=== PATIENT | male | born 1950 | race Two or more races ===

== ENCOUNTER 2020-12-06 12:21 | Inpatient (IN) | payer MEDICARE, MEDICAID ==
[~2020-12-06] VITALS: Ht 167.6 cm; Wt 118.8 kg
[2020-12-06] MEDS ORDERED: SODIUM CHLORIDE 0.9% 1000ML BAG (SEPSIS BOLUS) IV ONE (12:45)
[2020-12-06] MEDS ORDERED: ACETAMINOPHEN 325MG TABLET PO ONE (12:45)
[2020-12-06] MEDS ORDERED: VANCOMYCIN 1 G PREMIX 200 ML IV ONE (13:00)
[2020-12-06] MEDS ORDERED: PIPERACILLIN/TAZ 3.375G PREMIX 50 ML IV ONE (13:00)
[2020-12-06 13:19] LABS: BASOPHILS % 0.8 % (0.0-2.0); EOSINOPHILS % 1.8 % (0.0-5.0); HEMATOCRIT. 30.7 % (42.0-52.0); HEMOGLOBIN. 10.5 g/dL (14.0-18.0); LYMPHOCYTES % 16.1 % (20.0-50.0); MEAN CORPUSCULAR HEMOGLOBIN 30.9 pg (28.0-32.0); MEAN CORPUSCULAR VOLUME 90.7 fL (80.0-94.0); MONOCYTES % 7.3 % (2.0-8.0); RED BLOOD CELL COUNT 3.39 mill/uL (4.7-6.1); RED CELL DISTRIBUTION WIDTH 19.8 % (11.6-14.6)
[2020-12-06 13:25] LABS: CHLORIDE 96 mEq/L (98-107)
[2020-12-06 13:41] LABS: INR 1.5; PARTIAL THROMBOPLASTIN TIME 32.7 sec (23.4-31.0); PROTHROMBIN TIME 15.3 sec (9.6-11.0)
[2020-12-06 14:02] LABS: PLATELET 49 x1000/uL (130-400); PLATELET ESTIMATE MARKEDLY DECREASED
[2020-12-06 14:18] LABS: CLARITY URINE CLEAR (CLEAR); COLOR URINE ORANGE (YELLOW); KETONES URINE TRACE (NEGATIVE); LEUKOCYTE ESTERASE URINE 1+ (NEGATIVE); NITRITE URINE NEGATIVE (NEGATIVE); OCCULT BLOOD URINE NEGATIVE (NEGATIVE); PH URINE 5.5 (4.5-8.0); PROTEIN URINE TRACE (NEGATIVE); SPECIFIC GRAVITY URINE 1.017 (1.005-1.030)
[2020-12-06] MEDS ORDERED: KCL 20MEQ/100ML PREMIX 100 ML IV ONE (14:30)
[2020-12-06] MEDS ORDERED: LACTULOSE 20G/30ML UDC PO ONE (14:30)
[2020-12-06] MEDS ORDERED: POTASSIUM CHLORIDE 20MEQ TABLET SR PO ONE (14:30)
[2020-12-07] MEDS ORDERED: NALOXONE HCL 0.4MG/ML VIAL IV PRN (09:00)
[2020-12-07] MEDS ORDERED: MORPHINE SULFATE 2 MG/ML CPJ (NOT FOR IM USE) IV PRN (09:00)
[2020-12-07] MEDS ORDERED: IPRATROPIUM/ALBUTEROL 0.5-3(2.5)MG/3ML NEB HHN PRN (09:00)
[2020-12-07 09:56] VITALS: BP 140/83
[2020-12-07] MEDS: VANCOMYCIN 1500MG in DEXTROSE 5% WATER 250ML IV SCH (11:28)
[2020-12-07] MEDS: SODIUM CHLORIDE 0.9% 1,000 ML IV SCH (11:28)
[2020-12-07] MEDS ORDERED: FURO-151 PO (12:13)
[2020-12-07 12:27] VITALS: BP 130/49
[2020-12-07 13:13] LABS: BASOPHILS % 0.6 % (0.0-2.0); EOSINOPHILS % 7.5 % (0.0-5.0); HEMATOCRIT. 30.6 % (42.0-52.0); HEMOGLOBIN. 10.5 g/dL (14.0-18.0); LYMPHOCYTES % 15.5 % (20.0-50.0); MEAN CORPUSCULAR HEMOGLOBIN 31.1 pg (28.0-32.0); MEAN CORPUSCULAR VOLUME 90.9 fL (80.0-94.0); MEAN PLATELET VOLUME 9.9 fl (7.4-10.4); MONOCYTES % 7.8 % (2.0-8.0); NEUTROPHILS % 68.6 % (40.0-76.0); RED BLOOD CELL COUNT 3.37 mill/uL (4.7-6.1); RED CELL DISTRIBUTION WIDTH 20.6 % (11.6-14.6)
[2020-12-07] MEDS ORDERED: PIPERACILLIN/TAZOBACTAM 3.375 G in DEXTROSE 5% WATER 50 ML IV SCH (14:00)
[2020-12-07 15:54] VITALS: BP 153/80
[2020-12-07] MEDS ORDERED: ATOR20TA65 PO (16:04)
[2020-12-07] MEDS ORDERED: AMLO-337 MT (16:04)
[2020-12-07] MEDS ORDERED: SENN-178 PO (16:04)
[2020-12-07] MEDS ORDERED: POTASSIUM CHLORIDE INJ 40 MEQ in DEXT 5% WATER 250 ML IV NR ×2 (16:30→20:00)
[2020-12-07 20:00] VITALS: BP 125/54
[2020-12-07] MEDS: LACTULOSE 20G/30ML UDC PO SCH (20:32)
[2020-12-08] VITALS: BP 126/56
[2020-12-08] MEDS: SODIUM CHLORIDE 0.9% 1,000 ML IV SCH ×3 (00:57→15:00)
[2020-12-08] MEDS: PIPERACILLIN/TAZOBACTAM 3.375G in DEXT 5% WATER 50ML IV SCH ×2 (00:57→05:40)
[2020-12-08 04:00] VITALS: BP 140/76
[2020-12-08] MEDS: LACTULOSE 20G/30ML UDC PO SCH ×3 (05:39→22:13)
[2020-12-08 07:15] LABS: CHLORIDE 103 mEq/L (98-107)
[2020-12-08 07:22] LABS: LDL CHOLESTEROL 48 mg/dL (5-100)
[2020-12-08 07:23] LABS: HDL CHOLESTEROL 12 mg/dL (40-59)
[2020-12-08 07:24] LABS: INR 1.6; PARTIAL THROMBOPLASTIN TIME 36.4 sec (23.4-31.0); PROTHROMBIN TIME 16.2 sec (9.6-11.0)
[2020-12-08 07:28] LABS: HEMATOCRIT. 29.9 % (42.0-52.0); HEMOGLOBIN. 10.1 g/dL (14.0-18.0); MEAN CORPUSCULAR HEMOGLOBIN 31.1 pg (28.0-32.0); MEAN CORPUSCULAR VOLUME 92.1 fL (80.0-94.0); MEAN PLATELET VOLUME 9.9 fl (7.4-10.4); RED BLOOD CELL COUNT 3.25 mill/uL (4.7-6.1); RED CELL DISTRIBUTION WIDTH 20.6 % (11.6-14.6)
[2020-12-08 07:43] LABS: HEPATITIS B SURFACE ANTIGEN NEGATIVE
[2020-12-08 08:00] VITALS: BP 145/63
[2020-12-08 08:05] LABS: PLATELET 38 x1000/uL (130-400)
[2020-12-08] MEDS ORDERED: POTASSIUM CHLORIDE INJ 40 MEQ in DEXT 5% WATER 250 ML IV NR (10:00)
[2020-12-08] MEDS ORDERED: SIMETHICONE/SOD BICARB/CIT AC 1 EACH GRAN.EF.PK ONE (11:10)
[2020-12-08] MEDS ORDERED: LIDOCAINE HCL 1% 20ML VIAL (Pyxis) INJ ONE (11:10)
[2020-12-08] MEDS ORDERED: SODIUM BICARBONATE 4% (2.4MEQ) 5ML VIAL IV ONE (11:11)
[2020-12-08 11:43] LABS: PLATELET ESTIMATE MARKEDLY DECREASED
[2020-12-08 12:00] VITALS: BP 137/67
[2020-12-08 16:00] VITALS: BP 128/42
[2020-12-08] MEDS: VANCOMYCIN 1500MG in DEXTROSE 5% WATER 250ML IV SCH (18:10)
[2020-12-08] MEDS: ACETAMINOPHEN 325MG TABLET PO PRN (20:21)
[2020-12-08 20:38] VITALS: BP 130/57
[2020-12-08] MEDS: CEFEPIME 1,000 MG in DEXTROSE 5% WATER 50 ML IV SCH (22:12)
[2020-12-08] MEDS: METRONIDAZOLE 500 MG PREMIX 100 ML IV SCH (22:14)
[2020-12-09] VITALS: BP 127/57
[2020-12-09] MEDS: SODIUM CHLORIDE 0.9% 1,000 ML IV SCH ×3 (01:29→21:09)
[2020-12-09 04:00] VITALS: BP 123/47
[2020-12-09] MEDS: LACTULOSE 20G/30ML UDC PO SCH ×3 (06:06→21:10)
[2020-12-09] MEDS: CEFEPIME 1,000 MG in DEXTROSE 5% WATER 50 ML IV SCH ×3 (06:06→21:09)
[2020-12-09] MEDS: METRONIDAZOLE 500 MG PREMIX 100 ML IV SCH (06:07)
[2020-12-09 07:46] LABS: HEMATOCRIT. 28.8 % (42.0-52.0); HEMOGLOBIN. 9.9 g/dL (14.0-18.0); MEAN CORPUSCULAR HEMOGLOBIN 31.3 pg (28.0-32.0); MEAN CORPUSCULAR VOLUME 91.5 fL (80.0-94.0); RED BLOOD CELL COUNT 3.15 mill/uL (4.7-6.1); RED CELL DISTRIBUTION WIDTH 21.2 % (11.6-14.6)
[2020-12-09 08:00] VITALS: BP 130/52
[2020-12-09] MEDS ORDERED: POTASSIUM CHLORIDE 20MEQ TABLET SR PO NR (09:00)
[2020-12-09] MEDS: VANCOMYCIN 1 G PREMIX 200 ML IV SCH (10:58)
[2020-12-09] MEDS ORDERED: KCL 20MEQ/100ML PREMIX 100 ML IV NR (11:00)
[2020-12-09] MEDS ORDERED: POTASSIUM CHLORIDE INJ 20 MEQ in DEXT 5% WATER 250 ML IV NR (11:00)
[2020-12-09 11:40] LABS: PLATELET ESTIMATE MARKEDLY DECREASED
[2020-12-09 11:41] LABS: PLATELET 36 x1000/uL (130-400)
[2020-12-09 12:00] VITALS: BP 128/50
[2020-12-09] MEDS ORDERED: MAGN200T5 MT (13:56)
[2020-12-09] MEDS ORDERED: CHLO25TA2 MT (13:56)
[2020-12-09] MEDS ORDERED: SIMV-43 MT (13:58)
[2020-12-09 14:46] LABS: PLATELET 43 x1000/uL (130-400)
[2020-12-09 16:00] VITALS: BP 152/78
[2020-12-09] MEDS: METRONIDAZOLE 500MG TABLET PO SCH ×2 (16:10→21:09)
[2020-12-09] MEDS: ACETAMINOPHEN 325MG TABLET PO PRN (17:07)
[2020-12-09 18:23] LABS: PHOSPHORUS 1.3 mg/dL (2.5-4.9)
[2020-12-09 20:00] VITALS: BP 93/48
[2020-12-10] VITALS: BP 113/54
[2020-12-10] MEDS ORDERED: MAGNESIUM 2 G PREMIX 50 ML IV SCH (00:15)
[2020-12-10 04:00] VITALS: BP 135/54
[2020-12-10] MEDS: LACTULOSE 20G/30ML UDC PO SCH ×3 (06:00→20:47)
[2020-12-10 06:32] LABS: BASOPHILS % 0.3 % (0.0-2.0); CHLORIDE 98 mEq/L (98-107); EOSINOPHILS % 12.1 % (0.0-5.0); HEMATOCRIT. 37.9 % (42.0-52.0); HEMOGLOBIN. 12.6 g/dL (14.0-18.0); LYMPHOCYTES % 10.8 % (20.0-50.0); MEAN CORPUSCULAR HEMOGLOBIN 30.8 pg (28.0-32.0); MEAN CORPUSCULAR VOLUME 92.6 fL (80.0-94.0); MONOCYTES % 6.8 % (2.0-8.0); RED CELL DISTRIBUTION WIDTH 21.6 % (11.6-14.6)
[2020-12-10] MEDS: CEFEPIME 1,000 MG in DEXTROSE 5% WATER 50 ML IV SCH ×2 (06:41→14:07)
[2020-12-10] MEDS: METRONIDAZOLE 500MG TABLET PO SCH ×2 (06:41→14:15)
[2020-12-10] MEDS: SODIUM CHLORIDE 0.9% 1,000 ML IV SCH ×2 (06:42→17:47)
[2020-12-10 08:00] VITALS: BP 109/40
[2020-12-10 08:32] LABS: PLATELET 59 x1000/uL (130-400)
[2020-12-10] MEDS ORDERED: PREDNISONE 20MG TABLET PO SCH (10:00)
[2020-12-10] MEDS ORDERED: ALBUMIN HUMAN 25GM/100ML (25%) IV NR (10:00)
[2020-12-10 12:00] VITALS: BP 107/43
[2020-12-10] MEDS: VANCOMYCIN 1 G PREMIX 200 ML IV SCH (12:04)
[2020-12-10] MEDS: METHYLPREDNISOLONE SOD SUCC 40 MG/ML VIAL IV SCH ×2 (12:46→17:47)
[2020-12-10] MEDS ORDERED: SODIUM PHOS,M-BASIC-D-BASIC 30 MM in DEXT 5% WATER 500 ML IV NR (13:00)
[2020-12-10 16:00] VITALS: BP 125/42
[2020-12-10 16:50] LABS: T4 FREE 0.99 ng/dL (0.76-1.46)
[2020-12-10 20:00] VITALS: BP 114/54
[2020-12-10] MEDS: FAMOTIDINE 20MG TABLET PO SCH (20:47)
[2020-12-10] MEDS: MEROPENEM 1,000 MG in SODIUM CHLORIDE 0.9% 100 ML IV SCH (20:47)
[2020-12-11] VITALS (7 sets, daily range): BP systolic 107–135; BP diastolic 43–59
[2020-12-11] MEDS: METHYLPREDNISOLONE SOD SUCC 40 MG/ML VIAL IV SCH ×4 (00:19→17:42)
[2020-12-11] MEDS: MEROPENEM 1,000 MG in SODIUM CHLORIDE 0.9% 100 ML IV SCH ×3 (02:13→17:44)
[2020-12-11] MEDS: SODIUM CHLORIDE 0.9% 1,000 ML IV SCH ×2 (03:15→11:19)
[2020-12-11 06:03] LABS: BASOPHILS % 0.1 % (0.0-2.0); EOSINOPHILS % 1.7 % (0.0-5.0); HEMATOCRIT. 30.6 % (42.0-52.0); HEMOGLOBIN. 10.2 g/dL (14.0-18.0); LYMPHOCYTES % 10.7 % (20.0-50.0); MEAN CORPUSCULAR HEMOGLOBIN 30.5 pg (28.0-32.0); MEAN CORPUSCULAR VOLUME 91.6 fL (80.0-94.0); MEAN PLATELET VOLUME 9.9 fl (7.4-10.4); MONOCYTES % 2.2 % (2.0-8.0); NEUTROPHILS % 85.3 % (40.0-76.0); PLATELET 56 x1000/uL (130-400); RED BLOOD CELL COUNT 3.34 mill/uL (4.7-6.1); RED CELL DISTRIBUTION WIDTH 21.1 % (11.6-14.6)
[2020-12-11 06:14] LABS: CHLORIDE 94 mEq/L (98-107)
[2020-12-11] MEDS: LACTULOSE 20G/30ML UDC PO SCH ×3 (06:16→21:14)
[2020-12-11 06:27] LABS: PHOSPHORUS 2.5 mg/dL (2.5-4.9)
[2020-12-11] MEDS: FAMOTIDINE 20MG TABLET PO SCH ×2 (09:00→21:14)
[2020-12-11] MEDS: VANCOMYCIN 1 G PREMIX 200 ML IV SCH (11:19)
[2020-12-11] MEDS ORDERED: POTASSIUM CHLORIDE 20MEQ/PACKET PO NR (13:45)
[2020-12-11] MEDS: SODIUM BICARBONATE 650 MG TABLET PO SCH ×2 (15:40→17:42)
[2020-12-12] MEDS: METHYLPREDNISOLONE SOD SUCC 40 MG/ML VIAL IV SCH ×4 (00:01→17:45)
[2020-12-12 00:26] VITALS: BP 130/64
[2020-12-12] MEDS: MEROPENEM 1,000 MG in SODIUM CHLORIDE 0.9% 100 ML IV SCH ×3 (02:15→17:45)
[2020-12-12 04:00] VITALS: BP 106/61
[2020-12-12 05:38] LABS: BASOPHILS % 0.2 % (0.0-2.0); EOSINOPHILS % 1.4 % (0.0-5.0); HEMATOCRIT. 31.8 % (42.0-52.0); HEMOGLOBIN. 10.7 g/dL (14.0-18.0); LYMPHOCYTES % 7.7 % (20.0-50.0); MEAN CORPUSCULAR VOLUME 92.4 fL (80.0-94.0); MONOCYTES % 4.5 % (2.0-8.0); NEUTROPHILS % 86.2 % (40.0-76.0); RED BLOOD CELL COUNT 3.44 mill/uL (4.7-6.1); RED CELL DISTRIBUTION WIDTH 21.8 % (11.6-14.6)
[2020-12-12] MEDS: LACTULOSE 20G/30ML UDC PO SCH ×3 (06:00→22:31)
[2020-12-12 06:21] LABS: PHOSPHORUS 2.1 mg/dL (2.5-4.9)
[2020-12-12 07:59] VITALS: BP 154/67
[2020-12-12] MEDS: FAMOTIDINE 20MG TABLET PO SCH ×2 (08:54→22:31)
[2020-12-12] MEDS: SODIUM BICARBONATE 650 MG TABLET PO SCH (08:54)
[2020-12-12 09:06] LABS: IMMUNOGLOBULIN A 775 mg/dL (61-437); IMMUNOGLOBULIN G 2152 mg/dL (603-1613); IMMUNOGLOBULIN M 60 mg/dL (20-172)
[2020-12-12 10:05] LABS: PLATELET 63 x1000/uL (130-400)
[2020-12-12 10:06] LABS: MEAN PLATELET VOLUME 9.4 fl (7.4-10.4)
[2020-12-12] MEDS: VANCOMYCIN 1 G PREMIX 200 ML IV SCH (11:24)
[2020-12-12 11:44] VITALS: BP 131/51
[2020-12-12 15:53] VITALS: BP 160/74
[2020-12-12] MEDS: POTASSIUM-SODIUM PHOSPHATE POWDER PACKET PO SCH (16:10)
[2020-12-12 20:00] VITALS: BP 122/48
[2020-12-13] VITALS: BP 156/63
[2020-12-13] MEDS: METHYLPREDNISOLONE SOD SUCC 40 MG/ML VIAL IV SCH ×4 (01:34→17:26)
[2020-12-13] MEDS: MEROPENEM 1,000 MG in SODIUM CHLORIDE 0.9% 100 ML IV SCH ×3 (01:35→17:26)
[2020-12-13 04:00] VITALS: BP 101/89
[2020-12-13] MEDS: LACTULOSE 20G/30ML UDC PO SCH ×3 (05:39→21:37)
[2020-12-13 06:49] LABS: BASOPHILS % 0.1 % (0.0-2.0); EOSINOPHILS % 0.5 % (0.0-5.0); HEMATOCRIT. 33.2 % (42.0-52.0); HEMOGLOBIN. 11.2 g/dL (14.0-18.0); LYMPHOCYTES % 10.6 % (20.0-50.0); MEAN CORPUSCULAR VOLUME 92.2 fL (80.0-94.0); MEAN PLATELET VOLUME 9.3 fl (7.4-10.4); MONOCYTES % 7.7 % (2.0-8.0); NEUTROPHILS % 81.1 % (40.0-76.0); PLATELET 76 x1000/uL (130-400); RED CELL DISTRIBUTION WIDTH 21.8 % (11.6-14.6)
[2020-12-13 07:23] LABS: CHLORIDE 101 mEq/L (98-107)
[2020-12-13 08:00] VITALS: BP 138/55
[2020-12-13] MEDS: POTASSIUM-SODIUM PHOSPHATE POWDER PACKET PO SCH ×2 (09:42→17:26)
[2020-12-13] MEDS: FAMOTIDINE 20MG TABLET PO SCH ×2 (09:42→21:00)
[2020-12-13 12:00] VITALS: BP 135/55
[2020-12-13 16:00] VITALS: BP 115/76
[2020-12-13 20:00] VITALS: BP 152/66
[2020-12-14] VITALS: BP 157/76
[2020-12-14] MEDS: METHYLPREDNISOLONE SOD SUCC 40 MG/ML VIAL IV SCH ×4 (00:49→18:52)
[2020-12-14] MEDS: MEROPENEM 1,000 MG in SODIUM CHLORIDE 0.9% 100 ML IV SCH ×3 (02:58→18:52)
[2020-12-14 04:00] VITALS: BP 104/53
[2020-12-14] MEDS: LACTULOSE 20G/30ML UDC PO SCH ×3 (05:52→22:58)
[2020-12-14 06:43] LABS: HEMATOCRIT. 29.9 % (42.0-52.0); HEMOGLOBIN. 10.1 g/dL (14.0-18.0); MEAN CORPUSCULAR HEMOGLOBIN 31.4 pg (28.0-32.0); MEAN CORPUSCULAR VOLUME 93.3 fL (80.0-94.0); RED CELL DISTRIBUTION WIDTH 22.4 % (11.6-14.6)
[2020-12-14 06:54] LABS: CHLORIDE 107 mEq/L (98-107)
[2020-12-14 07:03] LABS: PHOSPHORUS 3.5 mg/dL (2.5-4.9)
[2020-12-14 08:00] VITALS: BP 142/65
[2020-12-14 09:06] LABS: ACTIN (SMOOTH MUSCLE) ANTIBODY 11 Units (0-19); ANGIOTENSION CONVERTING ENZYME 75 U/L (14-82); HLA CLASS 1 ANTIBODY Positive (Negative); IIb/IIIa ANTIBODY Positive (Negative); Ib/IX ANTIBODY Positive (Negative)
[2020-12-14] MEDS: FAMOTIDINE 20MG TABLET PO SCH ×2 (09:25→22:58)
[2020-12-14] MEDS: POTASSIUM-SODIUM PHOSPHATE POWDER PACKET PO SCH ×2 (09:25→18:49)
[2020-12-14 10:09] LABS: ANTI-DNA DOUBLE STRANDED QUANT < 1 IU/mL (0-9)
[2020-12-14 10:59] LABS: BG BASE EXCESS -0.8 mmol/L (-2.0-2.0); BG CARBOXYHEMOGLOBIN 1.5 % (0.5-1.5); BG DEOXYHEMOGLOBIN 22.8 % (0.0-5.0); BG HCO3 ACT 21.9 mmol/L (22.0-26.0); BG METHEMOGLOBIN 0.2 % (0.0-1.5); BG OXYGEN SATURATION 76.8 % (92.0-98.5); BG OXYHEMOGLOBIN 75.5 % (94.0-97.0); BG PCO2 30.3 mmHg (35.0-45.0); BG PH 7.476 (7.350-7.450); BG SAMPLE SITE RIGHT RADIAL; BG TOTAL HEMOGLOBIN 13.1 g/dL (12.0-18.0); BG VENT MODE NASAL CANNULA
[2020-12-14 12:00] VITALS: BP 139/64
[2020-12-14 13:06] LABS: ALDOLASE 18.1 U/L (3.3-10.3); ATYPICAL P-ANCA <1:20 titer (Neg:<1:20); CYTOPLASMIC C-ANCA <1:20 titer (Neg:<1:20); PERINUCLEAR P-ANCA <1:20 titer (Neg:<1:20)
[2020-12-14 14:22] LABS: PLATELET 50 x1000/uL (130-400); PLATELET ESTIMATE MARKEDLY DECREASED
[2020-12-14 16:00] VITALS: BP 120/42
[2020-12-14 20:00] VITALS: BP 140/77
[2020-12-15] VITALS: BP 156/69
[2020-12-15] MEDS: METHYLPREDNISOLONE SOD SUCC 40 MG/ML VIAL IV SCH ×4 (02:50→18:51)
[2020-12-15] MEDS: MEROPENEM 1,000 MG in SODIUM CHLORIDE 0.9% 100 ML IV SCH ×3 (02:50→18:50)
[2020-12-15 04:00] VITALS: BP 126/73
[2020-12-15] MEDS: LACTULOSE 20G/30ML UDC PO SCH ×3 (06:00→22:00)
[2020-12-15 08:30] VITALS: BP 154/74
[2020-12-15] MEDS: POTASSIUM-SODIUM PHOSPHATE POWDER PACKET PO SCH ×2 (08:52→17:41)
[2020-12-15] MEDS: FAMOTIDINE 20MG TABLET PO SCH ×2 (08:52→20:59)
[2020-12-15 09:07] LABS: ANA IFA Positive (.)
[2020-12-15] MEDS: SPIRONOLACTONE 25MG TABLET PO SCH (09:56)
[2020-12-15 12:15] VITALS: BP 154/64
[2020-12-15 12:29] LABS: INR 1.8; PROTHROMBIN TIME 18.7 sec (9.6-11.0)
[2020-12-15 13:11] LABS: ANTI-MYELOPEROXIDASE AB < 9.0 U/mL (0.0-9.0); ANTI-PROTEINASE 3 ABS < 3.5 U/mL (0.0-3.5)
[2020-12-15 14:10] LABS: BG BASE EXCESS 1.9 mmol/L (-2.0-2.0); BG CARBOXYHEMOGLOBIN 0.5 % (0.5-1.5); BG DEOXYHEMOGLOBIN 3.7 % (0.0-5.0); BG FRACTION INSPIRED OXYGEN 100; BG METHEMOGLOBIN 0.4 % (0.0-1.5); BG OXYGEN SATURATION 96.3 % (92.0-98.5); BG OXYHEMOGLOBIN 95.4 % (94.0-97.0); BG PCO2 33.7 mmHg (35.0-45.0); BG PH 7.488 (7.350-7.450); BG PO2 90.5 mmHg (75.0-100.0); BG SAMPLE SITE RIGHT RADIAL; BG TOTAL HEMOGLOBIN 10.8 g/dL (12.0-18.0); BG VENT MODE MASK - NRB
[2020-12-15 16:45] LABS: PHOSPHORUS 4.9 mg/dL (2.5-4.9)
[2020-12-15 20:34] VITALS: BP 144/70
[2020-12-15] MEDS: IPRATROPIUM/ALBUTEROL 0.5-3(2.5)MG/3ML NEB HHN SCH (20:40)
[2020-12-16] VITALS (7 sets, daily range): BP systolic 123–169; BP diastolic 52–95
[2020-12-16] MEDS: METHYLPREDNISOLONE SOD SUCC 40 MG/ML VIAL IV SCH ×4 (01:51→17:32)
[2020-12-16] MEDS: MEROPENEM 1,000 MG in SODIUM CHLORIDE 0.9% 100 ML IV SCH ×3 (01:57→17:33)
[2020-12-16] MEDS: LACTULOSE 20G/30ML UDC PO SCH ×2 (06:00→14:00)
[2020-12-16 07:59] LABS: BASOPHILS % 0.3 % (0.0-2.0); EOSINOPHILS % 0.1 % (0.0-5.0); HEMATOCRIT. 30.7 % (42.0-52.0); HEMOGLOBIN. 10.4 g/dL (14.0-18.0); LYMPHOCYTES % 12.5 % (20.0-50.0); MEAN CORPUSCULAR HEMOGLOBIN 31.7 pg (28.0-32.0); MEAN CORPUSCULAR VOLUME 93.9 fL (80.0-94.0); MONOCYTES % 4.4 % (2.0-8.0); NEUTROPHILS % 82.7 % (40.0-76.0); RED BLOOD CELL COUNT 3.27 mill/uL (4.7-6.1); RED CELL DISTRIBUTION WIDTH 22.9 % (11.6-14.6)
[2020-12-16 08:08] LABS: INR 1.7; PARTIAL THROMBOPLASTIN TIME 29.1 sec (23.4-31.0); PROTHROMBIN TIME 17.7 sec (9.6-11.0)
[2020-12-16 08:30] LABS: PHOSPHORUS 5.2 mg/dL (2.5-4.9)
[2020-12-16 09:11] LABS: G6PD RBC 3.67 x10E6/uL (4.14-5.80)
[2020-12-16] MEDS: POTASSIUM-SODIUM PHOSPHATE POWDER PACKET PO SCH (09:53)
[2020-12-16] MEDS: FAMOTIDINE 20MG TABLET PO SCH ×2 (09:53→21:04)
[2020-12-16] MEDS: SPIRONOLACTONE 25MG TABLET PO SCH (09:54)
[2020-12-16 10:26] LABS: PLATELET ESTIMATE DECREASED
[2020-12-16 10:28] LABS: PLATELET 60 x1000/uL (130-400)
[2020-12-16] MEDS: FUROSEMIDE 40MG TABLET PO SCH (18:32)
[2020-12-16] MEDS ORDERED: LORAZEPAM 0.5MG TABLET PO PRN (19:30)
[2020-12-16] MEDS: BENZONATATE 100MG CAPSULE PO PRN ×2 (20:58→21:03)
[2020-12-17] VITALS (12 sets, daily range): BP systolic 96–160; BP diastolic 17–96
[2020-12-17] MEDS: LACTULOSE 20G/30ML UDC PO SCH ×4 (00:26→22:45)
[2020-12-17] MEDS: METHYLPREDNISOLONE SOD SUCC 40 MG/ML VIAL IV SCH ×4 (00:26→17:09)
[2020-12-17] MEDS: IPRATROPIUM/ALBUTEROL 0.5-3(2.5)MG/3ML NEB HHN SCH ×4 (02:46→20:33)
[2020-12-17] MEDS: MEROPENEM 1,000 MG in SODIUM CHLORIDE 0.9% 100 ML IV SCH ×3 (04:35→17:08)
[2020-12-17] MEDS ORDERED: PHYTONADIONE 10MG/ML AMP SUBCUT NR ×2 (05:00→15:45)
[2020-12-17] MEDS: FUROSEMIDE 40MG TABLET PO SCH ×2 (06:13→17:09)
[2020-12-17 06:20] LABS: CHLORIDE 110 mEq/L (98-107)
[2020-12-17 06:26] LABS: PHOSPHORUS 4.2 mg/dL (2.5-4.9)
[2020-12-17] MEDS: FAMOTIDINE 20MG TABLET PO SCH ×2 (09:06→22:45)
[2020-12-17] MEDS: SPIRONOLACTONE 25MG TABLET PO SCH (09:06)
[2020-12-17 09:07] LABS: ANTI-CENTROMERE B ANTIBODIES < 0.2 AI (0.0-0.9); ANTI-JO 1 ABS <0.2 AI (0.0-0.9)
[2020-12-18] VITALS (15 sets, daily range): BP systolic 109–158; BP diastolic 20–98
[2020-12-18] MEDS ORDERED: ALBUMIN HUMAN 25GM/100ML (25%) IV NR ×2 (02:00→08:00)
[2020-12-18] MEDS ORDERED: SODIUM BICARBONATE 100 MEQ in SODIUM CHLORIDE 0.45% 1,000 ML IV SCH (02:00)
[2020-12-18] MEDS: METHYLPREDNISOLONE SOD SUCC 40 MG/ML VIAL IV SCH ×4 (02:15→21:16)
[2020-12-18] MEDS: FUROSEMIDE 40MG TABLET PO SCH (04:35)
[2020-12-18] MEDS: LACTULOSE 20G/30ML UDC PO SCH ×3 (04:35→21:16)
[2020-12-18] MEDS: IPRATROPIUM/ALBUTEROL 0.5-3(2.5)MG/3ML NEB HHN SCH ×4 (05:05→20:16)
[2020-12-18 05:54] LABS: INR 1.8; PROTHROMBIN TIME 18.9 sec (9.6-11.0)
[2020-12-18 05:56] LABS: CHLORIDE 106 mEq/L (98-107)
[2020-12-18 06:05] LABS: PHOSPHORUS 4.5 mg/dL (2.5-4.9)
[2020-12-18 09:10] LABS: HLA CLASS 1 ANTIBODY Positive (Negative); IIb/IIIa ANTIBODY Negative (Negative); Ia/IIa ANTIBODY Negative (Negative); Ib/IX ANTIBODY Positive (Negative)
[2020-12-18] MEDS: FAMOTIDINE 20MG TABLET PO SCH ×2 (09:29→21:16)
[2020-12-18] MEDS: PHYTONADIONE 10MG/ML AMP SUBCUT SCH (09:29)
[2020-12-18] MEDS: SPIRONOLACTONE 25MG TABLET PO SCH (09:30)
[2020-12-18 09:50] LABS: HEMATOCRIT. 30.9 % (42.0-52.0); HEMOGLOBIN. 10.3 g/dL (14.0-18.0); MEAN CORPUSCULAR HEMOGLOBIN 31.8 pg (28.0-32.0); RED BLOOD CELL COUNT 3.26 mill/uL (4.7-6.1); RED CELL DISTRIBUTION WIDTH 23.3 % (11.6-14.6)
[2020-12-18 11:50] LABS: BG BASE EXCESS 0.6 mmol/L (-2.0-2.0); BG CARBOXYHEMOGLOBIN 1.4 % (0.5-1.5); BG DEOXYHEMOGLOBIN 0.5 % (0.0-5.0); BG HCO3 ACT 24.5 mmol/L (22.0-26.0); BG METHEMOGLOBIN 0.5 % (0.0-1.5); BG OXYGEN SATURATION 99.5 % (92.0-98.5); BG OXYHEMOGLOBIN 97.6 % (94.0-97.0); BG PCO2 36.7 mmHg (35.0-45.0); BG PH 7.443 (7.350-7.450); BG PO2 234.9 mmHg (75.0-100.0); BG SAMPLE SITE RIGHT RADIAL; BG TOTAL HEMOGLOBIN 11.1 g/dL (12.0-18.0); BG VENT MODE MASK - BIPAP
[2020-12-18] MEDS: FUROSEMIDE 40MG/4ML VIAL IVP SCH (16:23)
[2020-12-18 17:06] LABS: ANGIOTENSION CONVERTING ENZYME 85 U/L (14-82)
[2020-12-18 19:10] LABS: ANTI-CARDIOLIPIN AB IGA < 9 APL U/mL (0-11); ANTI-CARDIOLIPIN AB IGG < 9 GPL U/mL (0-14); ANTI-CARDIOLIPIN AB IGM 9 MPL U/mL (0-12)
[2020-12-19] VITALS (18 sets, daily range): BP systolic 37–163; BP diastolic 13–112
[2020-12-19] MEDS: IPRATROPIUM/ALBUTEROL 0.5-3(2.5)MG/3ML NEB HHN SCH ×5 (00:43→20:15)
[2020-12-19 05:24] LABS: CHLORIDE 111 mEq/L (98-107)
[2020-12-19 05:25] LABS: HEMOGLOBIN. 8.9 g/dL (14.0-18.0); MEAN CORPUSCULAR HEMOGLOBIN 31.7 pg (28.0-32.0); MEAN CORPUSCULAR VOLUME 96.4 fL (80.0-94.0); RED CELL DISTRIBUTION WIDTH 23.2 % (11.6-14.6)
[2020-12-19 05:32] LABS: PHOSPHORUS 4.1 mg/dL (2.5-4.9)
[2020-12-19 05:48] LABS: INR 2.1; PROTHROMBIN TIME 21.5 sec (9.6-11.0)
[2020-12-19] MEDS: LACTULOSE 20G/30ML UDC PO SCH ×3 (05:56→21:05)
[2020-12-19] MEDS: PHYTONADIONE 10MG/ML AMP SUBCUT SCH (09:24)
[2020-12-19] MEDS: FAMOTIDINE 20MG TABLET PO SCH ×2 (09:24→21:05)
[2020-12-19] MEDS: METHYLPREDNISOLONE SOD SUCC 40 MG/ML VIAL IV SCH ×2 (09:27→21:05)
[2020-12-19] MEDS: SPIRONOLACTONE 25MG TABLET PO SCH (09:27)
[2020-12-19] MEDS: FUROSEMIDE 40MG/4ML VIAL IVP SCH ×2 (09:35→16:52)
[2020-12-19] MEDS ORDERED: PHYTONADIONE 10MG/ML AMP SUBCUT NR (16:30)
[2020-12-19 17:33] LABS: INR 1.8; PROTHROMBIN TIME 18.2 sec (9.6-11.0)
[2020-12-20] VITALS (11 sets, daily range): BP systolic 105–165; BP diastolic 47–100
[2020-12-20] MEDS: IPRATROPIUM/ALBUTEROL 0.5-3(2.5)MG/3ML NEB HHN SCH ×4 (00:44→20:31)
[2020-12-20 01:03] LABS: INR 1.8; PROTHROMBIN TIME 18.8 sec (9.6-11.0)
[2020-12-20] MEDS: DIPHENHYDRAMINE 50MG/ML VIAL IV PRN ×3 (01:15→21:00)
[2020-12-20] MEDS: CLONIDINE 0.1MG TABLET PO PRN (02:46)
[2020-12-20] MEDS: LACTULOSE 20G/30ML UDC PO SCH ×3 (06:52→22:00)
[2020-12-20] MEDS ORDERED: PHYTONADIONE 10MG/ML AMP SUBCUT NR (08:00)
[2020-12-20 08:26] LABS: BG BASE EXCESS 7.7 mmol/L (-2.0-2.0); BG CARBOXYHEMOGLOBIN 1.6 % (0.5-1.5); BG DEOXYHEMOGLOBIN 6.2 % (0.0-5.0); BG FRACTION INSPIRED OXYGEN 80; BG HCO3 ACT 31.6 mmol/L (22.0-26.0); BG METHEMOGLOBIN 0.2 % (0.0-1.5); BG OXYGEN SATURATION 93.7 % (92.0-98.5); BG PCO2 41.5 mmHg (35.0-45.0); BG PH 7.499 (7.350-7.450); BG PO2 71.8 mmHg (75.0-100.0); BG SAMPLE SITE RIGHT RADIAL; BG TOTAL HEMOGLOBIN 9.3 g/dL (12.0-18.0); BG VENT MODE MASK - BIPAP
[2020-12-20] MEDS: FAMOTIDINE 20MG TABLET PO SCH ×2 (08:52→21:00)
[2020-12-20] MEDS: FUROSEMIDE 40MG/4ML VIAL IVP SCH ×2 (08:52→16:40)
[2020-12-20] MEDS: METHYLPREDNISOLONE SOD SUCC 40 MG/ML VIAL IV SCH ×2 (08:52→21:00)
[2020-12-20] MEDS: SPIRONOLACTONE 25MG TABLET PO SCH (08:52)
[2020-12-20 11:31] LABS: HEMOGLOBIN. 9.1 g/dL (14.0-18.0); MEAN CORPUSCULAR HEMOGLOBIN 32.1 pg (28.0-32.0); MEAN CORPUSCULAR VOLUME 98.4 fL (80.0-94.0); MEAN PLATELET VOLUME 9.2 fl (7.4-10.4); RED BLOOD CELL COUNT 2.84 mill/uL (4.7-6.1); RED CELL DISTRIBUTION WIDTH 23.7 % (11.6-14.6)
[2020-12-20 11:34] LABS: CHLORIDE 111 mEq/L (98-107)
[2020-12-20 11:40] LABS: PHOSPHORUS 3.4 mg/dL (2.5-4.9)
[2020-12-20 11:41] LABS: INR 1.9; PROTHROMBIN TIME 19.6 sec (9.6-11.0)
[2020-12-20 11:58] LABS: PLATELET 30 x1000/uL (130-400)
[2020-12-20] MEDS: ONDANSETRON HCL 4MG/2ML INJ IV PRN (15:22)
[2020-12-20 16:44] LABS: INR 1.9; PROTHROMBIN TIME 19.7 sec (9.6-11.0)
[2020-12-20 19:37] LABS: PLATELET ESTIMATE MARKEDLY DECREASED
[2020-12-20 23:25] LABS: INR 1.9; PROTHROMBIN TIME 19.4 sec (9.6-11.0)
[2020-12-21] VITALS (18 sets, daily range): BP systolic 102–161; BP diastolic 49–101
[2020-12-21] MEDS: IPRATROPIUM/ALBUTEROL 0.5-3(2.5)MG/3ML NEB HHN SCH ×4 (00:10→20:06)
[2020-12-21 04:07] LABS: CYC CITRULLINATED PEP IgG/IgA 14 units (0-19)
[2020-12-21] MEDS: LACTULOSE 20G/30ML UDC PO SCH ×4 (06:00→21:39)
[2020-12-21 09:14] LABS: INR 1.8; PROTHROMBIN TIME 18.9 sec (9.6-11.0)
[2020-12-21 09:18] LABS: CHLORIDE 115 mEq/L (98-107)
[2020-12-21 09:23] LABS: PHOSPHORUS 3.6 mg/dL (2.5-4.9)
[2020-12-21 09:28] LABS: HEMATOCRIT. 27.3 % (42.0-52.0); HEMOGLOBIN. 8.7 g/dL (14.0-18.0); MEAN PLATELET VOLUME 9.7 fl (7.4-10.4); RED BLOOD CELL COUNT 2.73 mill/uL (4.7-6.1); RED CELL DISTRIBUTION WIDTH 23.7 % (11.6-14.6)
[2020-12-21 09:59] LABS: PLATELET 32 x1000/uL (130-400)
[2020-12-21] MEDS: METHYLPREDNISOLONE SOD SUCC 40 MG/ML VIAL IV SCH ×2 (10:38→21:39)
[2020-12-21] MEDS: FAMOTIDINE 20MG TABLET PO SCH ×2 (10:39→21:39)
[2020-12-21] MEDS: SPIRONOLACTONE 25MG TABLET PO SCH (10:39)
[2020-12-21] MEDS: FUROSEMIDE 40MG/4ML VIAL IVP SCH ×2 (10:39→17:45)
[2020-12-21 11:24] LABS: INR 1.7; PROTHROMBIN TIME 17.5 sec (9.6-11.0)
[2020-12-21] MEDS: DEXTROSE 5% WATER 1,000 ML IV SCH (12:43)
[2020-12-21 12:50] LABS: BG CARBOXYHEMOGLOBIN 1.8 % (0.5-1.5); BG METHEMOGLOBIN 0.6 % (0.0-1.5); BG OXYGEN SATURATION 91.8 % (92.0-98.5); BG OXYHEMOGLOBIN 89.6 % (94.0-97.0); BG PCO2 48.6 mmHg (35.0-45.0); BG PO2 66.8 mmHg (75.0-100.0); BG SAMPLE SITE RIGHT RADIAL; BG TOTAL HEMOGLOBIN 9.7 g/dL (12.0-18.0); BG VENT MODE MASK - BIPAP
[2020-12-21] MEDS: POLYVINYL ALCOHOL OPHTH DROPS 15ML BOTHEYE SCH ×2 (12:59→17:46)
[2020-12-21] MEDS: BENZONATATE 100MG CAPSULE PO PRN (17:45)
[2020-12-21 20:09] LABS: INR 1.8; PROTHROMBIN TIME 18.3 sec (9.6-11.0)
[2020-12-21 21:29] LABS: PLATELET ESTIMATE MARKEDLY DECREASED
[2020-12-21] MEDS: DIPHENHYDRAMINE 50MG/ML VIAL IV PRN (21:39)
[2020-12-21] MEDS: CLONIDINE 0.1MG TABLET PO PRN (21:40)
[2020-12-22] VITALS (13 sets, daily range): BP systolic 117–167; BP diastolic 50–88
[2020-12-22] MEDS: IPRATROPIUM/ALBUTEROL 0.5-3(2.5)MG/3ML NEB HHN SCH ×4 (00:14→20:44)
[2020-12-22] MEDS: POLYVINYL ALCOHOL OPHTH DROPS 15ML BOTHEYE SCH ×4 (01:12→17:55)
[2020-12-22 01:26] LABS: INR 1.8; PROTHROMBIN TIME 18.8 sec (9.6-11.0)
[2020-12-22 05:01] LABS: HEMATOCRIT. 27.8 % (42.0-52.0); HEMOGLOBIN. 8.7 g/dL (14.0-18.0); MEAN CORPUSCULAR HEMOGLOBIN 32.5 pg (28.0-32.0); MEAN CORPUSCULAR VOLUME 103.6 fL (80.0-94.0); RED BLOOD CELL COUNT 2.69 mill/uL (4.7-6.1); RED CELL DISTRIBUTION WIDTH 23.8 % (11.6-14.6)
[2020-12-22 05:03] LABS: CHLORIDE 110 mEq/L (98-107)
[2020-12-22 05:11] LABS: PHOSPHORUS 3.5 mg/dL (2.5-4.9)
[2020-12-22 05:18] LABS: PLATELET 38 x1000/uL (130-400)
[2020-12-22] MEDS: LACTULOSE 20G/30ML UDC PO SCH ×3 (05:52→21:29)
[2020-12-22] MEDS ORDERED: SODIUM POLYSTYRENE SULFONATE 15 G/60 ML BOT PO SCH (07:00)
[2020-12-22] MEDS: DEXTROSE 5% WATER 1,000 ML IV SCH (08:21)
[2020-12-22] MEDS: METHYLPREDNISOLONE SOD SUCC 40 MG/ML VIAL IV SCH ×2 (08:22→21:22)
[2020-12-22] MEDS: FAMOTIDINE 20MG TABLET PO SCH ×2 (08:22→21:22)
[2020-12-22] MEDS: FUROSEMIDE 40MG/4ML VIAL IVP SCH ×2 (08:22→17:55)
[2020-12-22] MEDS: SPIRONOLACTONE 25MG TABLET PO SCH (08:22)
[2020-12-22] MEDS ORDERED: LIDOCAINE HCL 1% 20ML VIAL (Pyxis) INJ ONE (08:48)
[2020-12-22] MEDS ORDERED: SODIUM BICARBONATE 4% (2.4MEQ) 5ML VIAL IV ONE (08:48)
[2020-12-22] MEDS ORDERED: SODIUM POLYSTYRENE SULFONATE 15 G/60 ML BOT PO ONE (09:00)
[2020-12-22 09:05] LABS: INR 1.9; PROTHROMBIN TIME 19.2 sec (9.6-11.0)
[2020-12-22 13:59] LABS: PROTHROMBIN TIME 20.4 sec (9.6-11.0)
[2020-12-22 18:09] LABS: PLATELET ESTIMATE MARKEDLY DECREASED
[2020-12-23] VITALS (14 sets, daily range): BP systolic 121–150; BP diastolic 63–90
[2020-12-23] MEDS: POLYVINYL ALCOHOL OPHTH DROPS 15ML BOTHEYE SCH ×5 (00:11→23:30)
[2020-12-23] MEDS: IPRATROPIUM/ALBUTEROL 0.5-3(2.5)MG/3ML NEB HHN SCH ×4 (02:26→21:10)
[2020-12-23 04:04] LABS: HEMATOCRIT. 25.4 % (42.0-52.0); HEMOGLOBIN. 8.2 g/dL (14.0-18.0); MEAN CORPUSCULAR HEMOGLOBIN 32.4 pg (28.0-32.0); MEAN CORPUSCULAR VOLUME 100.1 fL (80.0-94.0); MEAN PLATELET VOLUME 9.8 fl (7.4-10.4); RED BLOOD CELL COUNT 2.54 mill/uL (4.7-6.1); RED CELL DISTRIBUTION WIDTH 23.3 % (11.6-14.6)
[2020-12-23 04:12] LABS: ANA IFA Negative (.)
[2020-12-23 04:34] LABS: CHLORIDE 108 mEq/L (98-107)
[2020-12-23 04:39] LABS: PHOSPHORUS 3.7 mg/dL (2.5-4.9)
[2020-12-23] MEDS: DEXTROSE 5% WATER 1,000 ML IV SCH (04:57)
[2020-12-23] MEDS: LACTULOSE 20G/30ML UDC PO SCH ×3 (05:10→21:00)
[2020-12-23 06:49] LABS: PROTHROMBIN TIME 20.3 sec (9.6-11.0)
[2020-12-23 06:49] LABS: PROTHROMBIN TIME 20.3 sec (9.6-11.0)
[2020-12-23] MEDS: FUROSEMIDE 40MG/4ML VIAL IVP SCH (08:28)
[2020-12-23] MEDS: FAMOTIDINE 20MG TABLET PO SCH (08:28)
[2020-12-23] MEDS: METHYLPREDNISOLONE SOD SUCC 40 MG/ML VIAL IV SCH (08:29)
[2020-12-23 14:33] LABS: INR 2.1; PROTHROMBIN TIME 21.4 sec (9.6-11.0)
[2020-12-23 17:52] LABS: NUCLEATED RED BLOOD CELLS 1 /100 WBC
[2020-12-23 17:53] LABS: PLATELET ESTIMATE MARKEDLY DECREASED
[2020-12-23 17:54] LABS: PLATELET 31 x1000/uL (130-400)
[2020-12-23] MEDS: OMEPRAZOLE 20MG CAPSULE EXTENDED RELEASE PO SCH (21:00)
[2020-12-23 21:01] LABS: INR 2.1; PROTHROMBIN TIME 20.9 sec (9.6-11.0)
[2020-12-24] VITALS (15 sets, daily range): BP systolic 122–152; BP diastolic 60–81
[2020-12-24] MEDS: IPRATROPIUM/ALBUTEROL 0.5-3(2.5)MG/3ML NEB HHN SCH ×4 (02:38→20:40)
[2020-12-24] MEDS: DEXTROSE 5% WATER 1,000 ML IV SCH (02:46)
[2020-12-24] MEDS: LACTULOSE 20G/30ML UDC PO SCH ×3 (05:49→21:19)
[2020-12-24] MEDS: POLYVINYL ALCOHOL OPHTH DROPS 15ML BOTHEYE SCH ×3 (05:50→17:25)
[2020-12-24] MEDS: OMEPRAZOLE 20MG CAPSULE EXTENDED RELEASE PO SCH ×2 (05:50→21:19)
[2020-12-24] MEDS: METHYLPREDNISOLONE SOD SUCC 40 MG/ML VIAL IV SCH (05:52)
[2020-12-24] MEDS: FUROSEMIDE 40MG/4ML VIAL IVP SCH (09:11)
[2020-12-24] MEDS: FOLIC ACID 1MG TABLET PO SCH (09:11)
[2020-12-24 11:24] LABS: HEMATOCRIT. 26.5 % (42.0-52.0); HEMOGLOBIN. 8.7 g/dL (14.0-18.0); MEAN CORPUSCULAR HEMOGLOBIN 33.2 pg (28.0-32.0); MEAN CORPUSCULAR VOLUME 100.4 fL (80.0-94.0); RED BLOOD CELL COUNT 2.64 mill/uL (4.7-6.1); RED CELL DISTRIBUTION WIDTH 24.4 % (11.6-14.6)
[2020-12-24 11:34] LABS: CHLORIDE 104 mEq/L (98-107)
[2020-12-24 11:40] LABS: PHOSPHORUS 3.5 mg/dL (2.5-4.9)
[2020-12-24 11:48] LABS: PLATELET 47 x1000/uL (130-400)
[2020-12-24 12:16] LABS: BG BASE EXCESS 8.6 mmol/L (-2.0-2.0); BG DEOXYHEMOGLOBIN 22.5 % (0.0-5.0); BG FRACTION INSPIRED OXYGEN 95; BG HCO3 ACT 32.4 mmol/L (22.0-26.0); BG METHEMOGLOBIN 0.3 % (0.0-1.5); BG OXYHEMOGLOBIN 75.2 % (94.0-97.0); BG PCO2 41.7 mmHg (35.0-45.0); BG PH 7.508 (7.350-7.450); BG PO2 41.8 mmHg (75.0-100.0); BG SAMPLE SITE RIGHT RADIAL; BG TOTAL HEMOGLOBIN 9.7 g/dL (12.0-18.0); BG VENT MODE HIGH FLOW
[2020-12-24 14:19] LABS: PLATELET ESTIMATE MARKEDLY DECREASED
[2020-12-24 17:50] LABS: INR 1.9
[2020-12-24] MEDS ORDERED: METHOTREXATE SODIUM 2 . 5MG TABLET PO SCH (21:15)
[2020-12-25] VITALS (12 sets, daily range): BP systolic 118–157; BP diastolic 49–92
[2020-12-25] MEDS: IPRATROPIUM/ALBUTEROL 0.5-3(2.5)MG/3ML NEB HHN SCH ×4 (01:07→19:57)
[2020-12-25] MEDS: LACTULOSE 20G/30ML UDC PO SCH ×3 (05:35→21:26)
[2020-12-25] MEDS: POLYVINYL ALCOHOL OPHTH DROPS 15ML BOTHEYE SCH ×5 (05:36→23:28)
[2020-12-25] MEDS: DEXTROSE 5% WATER 1,000 ML IV SCH (05:45)
[2020-12-25] MEDS ORDERED: METHOTREXATE SODIUM 2 . 5MG TABLET PO SCH ×4 (06:00→22:00)
[2020-12-25] MEDS: METHYLPREDNISOLONE SOD SUCC 40 MG/ML VIAL IV SCH (08:24)
[2020-12-25] MEDS: FUROSEMIDE 40MG/4ML VIAL IVP SCH (08:24)
[2020-12-25] MEDS: FOLIC ACID 1MG TABLET PO SCH (08:25)
[2020-12-25] MEDS: OMEPRAZOLE 20MG CAPSULE EXTENDED RELEASE PO SCH ×2 (08:25→21:26)
[2020-12-25 08:27] LABS: HEMATOCRIT. 28.4 % (42.0-52.0); HEMOGLOBIN. 9.5 g/dL (14.0-18.0); MEAN CORPUSCULAR HEMOGLOBIN 33.2 pg (28.0-32.0); MEAN CORPUSCULAR VOLUME 99.7 fL (80.0-94.0); MEAN PLATELET VOLUME 9.5 fl (7.4-10.4); RED BLOOD CELL COUNT 2.85 mill/uL (4.7-6.1)
[2020-12-25 09:19] LABS: CHLORIDE 101 mEq/L (98-107)
[2020-12-25 09:29] LABS: PHOSPHORUS 3.7 mg/dL (2.5-4.9)
[2020-12-25 10:17] LABS: PLATELET 40 x1000/uL (130-400)
[2020-12-25 11:01] LABS: PLATELET ESTIMATE MARKEDLY DECREASED
[2020-12-25] MEDS ORDERED: FOLIC ACID 1MG TABLET PO SCH (13:45)
[2020-12-26] VITALS (12 sets, daily range): BP systolic 117–141; BP diastolic 53–73
[2020-12-26] MEDS: IPRATROPIUM/ALBUTEROL 0.5-3(2.5)MG/3ML NEB HHN SCH ×4 (01:35→20:15)
[2020-12-26] MEDS: POLYVINYL ALCOHOL OPHTH DROPS 15ML BOTHEYE SCH ×4 (05:16→23:18)
[2020-12-26] MEDS: LACTULOSE 20G/30ML UDC PO SCH ×4 (05:16→21:00)
[2020-12-26] MEDS: METHYLPREDNISOLONE SOD SUCC 40 MG/ML VIAL IV SCH (08:20)
[2020-12-26] MEDS: FUROSEMIDE 40MG/4ML VIAL IVP SCH (08:20)
[2020-12-26] MEDS: FOLIC ACID 1MG TABLET PO SCH (08:20)
[2020-12-26] MEDS: OMEPRAZOLE 20MG CAPSULE EXTENDED RELEASE PO SCH ×2 (08:20→20:59)
[2020-12-26 08:45] LABS: HEMATOCRIT. 28.6 % (42.0-52.0); HEMOGLOBIN. 9.3 g/dL (14.0-18.0); MEAN CORPUSCULAR HEMOGLOBIN 32.7 pg (28.0-32.0); MEAN CORPUSCULAR VOLUME 100.9 fL (80.0-94.0); MEAN PLATELET VOLUME 10.3 fl (7.4-10.4); PLATELET 52 x1000/uL (130-400); RED BLOOD CELL COUNT 2.83 mill/uL (4.7-6.1); RED CELL DISTRIBUTION WIDTH 25.4 % (11.6-14.6)
[2020-12-26 10:00] LABS: CHLORIDE 101 mEq/L (98-107)
[2020-12-26 10:07] LABS: PHOSPHORUS 4.3 mg/dL (2.5-4.9)
[2020-12-26 13:06] LABS: ANGIOTENSION CONVERTING ENZYME 57 U/L (14-82)
[2020-12-26 14:30] LABS: PLATELET ESTIMATE MARKEDLY DECREASED
[2020-12-26] MEDS: NYSTATIN 100,000 UNITS/ML 5ML UDC SSW SCH ×2 (18:39→23:22)
[2020-12-27] VITALS (12 sets, daily range): BP systolic 120–145; BP diastolic 51–76
[2020-12-27] MEDS: IPRATROPIUM/ALBUTEROL 0.5-3(2.5)MG/3ML NEB HHN SCH ×4 (04:06→20:44)
[2020-12-27] MEDS: LACTULOSE 20G/30ML UDC PO SCH ×3 (05:01→21:03)
[2020-12-27] MEDS: POLYVINYL ALCOHOL OPHTH DROPS 15ML BOTHEYE SCH ×4 (05:01→23:30)
[2020-12-27 06:22] LABS: HEMATOCRIT. 27.1 % (42.0-52.0); MEAN CORPUSCULAR VOLUME 99.6 fL (80.0-94.0); RED BLOOD CELL COUNT 2.72 mill/uL (4.7-6.1); RED CELL DISTRIBUTION WIDTH 24.7 % (11.6-14.6)
[2020-12-27] MEDS: METHYLPREDNISOLONE SOD SUCC 40 MG/ML VIAL IV SCH (09:23)
[2020-12-27] MEDS: FUROSEMIDE 40MG TABLET PO SCH (09:23)
[2020-12-27] MEDS: OMEPRAZOLE 20MG CAPSULE EXTENDED RELEASE PO SCH ×2 (09:24→21:04)
[2020-12-27] MEDS: FOLIC ACID 1MG TABLET PO SCH (09:24)
[2020-12-27 12:35] LABS: PHOSPHORUS 4.7 mg/dL (2.5-4.9)
[2020-12-27 13:07] LABS: CHLORIDE 100 mEq/L (98-107)
[2020-12-27] MEDS: NYSTATIN 100,000 UNITS/ML 5ML UDC SSW SCH ×3 (14:19→23:30)
[2020-12-27 17:37] LABS: MEAN PLATELET VOLUME 10.8 fl (7.4-10.4)
[2020-12-27 17:38] LABS: PLATELET 32 x1000/uL (130-400)
[2020-12-27 17:39] LABS: PLATELET ESTIMATE MARKEDLY DECREASED
[2020-12-28] VITALS (19 sets, daily range): BP systolic 97–136; BP diastolic 43–67
[2020-12-28] MEDS: IPRATROPIUM/ALBUTEROL 0.5-3(2.5)MG/3ML NEB HHN SCH ×4 (01:04→20:26)
[2020-12-28] MEDS: NYSTATIN 100,000 UNITS/ML 5ML UDC SSW SCH ×3 (05:01→18:07)
[2020-12-28] MEDS: POLYVINYL ALCOHOL OPHTH DROPS 15ML BOTHEYE SCH ×3 (05:01→18:07)
[2020-12-28] MEDS: LACTULOSE 20G/30ML UDC PO SCH ×3 (05:01→21:55)
[2020-12-28 06:24] LABS: HEMATOCRIT. 28.5 % (42.0-52.0); HEMOGLOBIN. 9.3 g/dL (14.0-18.0); MEAN CORPUSCULAR VOLUME 100.8 fL (80.0-94.0); MEAN PLATELET VOLUME 11.4 fl (7.4-10.4); RED BLOOD CELL COUNT 2.82 mill/uL (4.7-6.1); RED CELL DISTRIBUTION WIDTH 24.6 % (11.6-14.6)
[2020-12-28 06:44] LABS: CHLORIDE 97 mEq/L (98-107)
[2020-12-28 06:54] LABS: PHOSPHORUS 4.4 mg/dL (2.5-4.9)
[2020-12-28] MEDS: OMEPRAZOLE 20MG CAPSULE EXTENDED RELEASE PO SCH ×2 (07:22→21:55)
[2020-12-28] MEDS: METHYLPREDNISOLONE SOD SUCC 40 MG/ML VIAL IV SCH (07:22)
[2020-12-28] MEDS: FOLIC ACID 1MG TABLET PO SCH (08:46)
[2020-12-28] MEDS: FUROSEMIDE 40MG TABLET PO SCH (08:46)
[2020-12-28 11:19] LABS: NUCLEATED RED BLOOD CELLS 1 /100 WBC
[2020-12-28 11:20] LABS: PLATELET ESTIMATE MARKEDLY DECREASED
[2020-12-28 11:22] LABS: PLATELET 30 x1000/uL (130-400)
[2020-12-28] MEDS: RIFAXIMIN 550 MG TABLET PO SCH ×2 (13:59→21:55)
[2020-12-29] VITALS (12 sets, daily range): BP systolic 93–136; BP diastolic 51–71
[2020-12-29] MEDS: IPRATROPIUM/ALBUTEROL 0.5-3(2.5)MG/3ML NEB HHN SCH ×3 (01:40→12:21)
[2020-12-29] MEDS: POLYVINYL ALCOHOL OPHTH DROPS 15ML BOTHEYE SCH ×4 (05:06→17:57)
[2020-12-29] MEDS: LACTULOSE 20G/30ML UDC PO SCH ×2 (05:06→14:54)
[2020-12-29] MEDS: NYSTATIN 100,000 UNITS/ML 5ML UDC SSW SCH ×4 (05:06→17:56)
[2020-12-29 06:19] LABS: HEMATOCRIT. 26.9 % (42.0-52.0); HEMOGLOBIN. 9.1 g/dL (14.0-18.0); MEAN CORPUSCULAR HEMOGLOBIN 33.7 pg (28.0-32.0); MEAN PLATELET VOLUME 11.6 fl (7.4-10.4); RED CELL DISTRIBUTION WIDTH 23.7 % (11.6-14.6)
[2020-12-29 06:38] LABS: PHOSPHORUS 5.3 mg/dL (2.5-4.9)
[2020-12-29] MEDS: OMEPRAZOLE 20MG CAPSULE EXTENDED RELEASE PO SCH (08:05)
[2020-12-29] MEDS: METHYLPREDNISOLONE SOD SUCC 40 MG/ML VIAL IV SCH (08:05)
[2020-12-29] MEDS ORDERED: SODIUM CHLORIDE 0.9% 1,000 ML IV SCH (09:00)
[2020-12-29] MEDS: FOLIC ACID 1MG TABLET PO SCH ×2 (09:00→09:51)
[2020-12-29] MEDS: RIFAXIMIN 550 MG TABLET PO SCH (09:51)
[2020-12-29] MEDS: ONDANSETRON HCL 4MG/2ML INJ IV PRN (10:42)
[2020-12-29] MEDS ORDERED: SODIUM POLYSTYRENE SULFONATE 15 G/60 ML BOT PO SCH (11:00)
[2020-12-29 12:33] LABS: PLATELET ESTIMATE MARKEDLY DECREASED
[2020-12-29 12:35] LABS: PLATELET 29 x1000/uL (130-400)
[2020-12-29] MEDS ORDERED: *PATIENT'S OWN MEDICATION STORAGE XX SCH (17:45)
== END 2020-12-30 | disposition short-term general hospital (02) | DRG 871 ==
LOC: ER 12:21 → MICUSO 17:07 → 6WST 12-07 07:38 → 5EST 12-15 21:15
PROVIDERS: ADMIT Internal Medicine; ATTEND Internal Medicine
PROC: 0W9G3ZZ Drainage of Peritoneal Cavity, Percutaneous Approach (ICD-10-PCS; principal; 2020-12-08)
PROC: 5A09357 Assistance with Respiratory Ventilation, Less than 24 Consecutive Hours, Continuous Positive Airway Pressure (ICD-10-PCS; 2020-12-17)
PROC: 05HY33Z Insertion of Infusion Device into Upper Vein, Percutaneous Approach (ICD-10-PCS; 2020-12-18)
PROC: B54MZZA Ultrasonography of Right Upper Extremity Veins, Guidance (ICD-10-PCS; 2020-12-18)
PROC: 5A09357 Assistance with Respiratory Ventilation, Less than 24 Consecutive Hours, Continuous Positive Airway Pressure (ICD-10-PCS; 2020-12-18)
PROC: 5A09457 Assistance with Respiratory Ventilation, 24-96 Consecutive Hours, Continuous Positive Airway Pressure (ICD-10-PCS; 2020-12-19)
PROC: 5A0935A Assistance with Respiratory Ventilation, Less than 24 Consecutive Hours, High Flow/Velocity Cannula (ICD-10-PCS; 2020-12-20)
PROC: 5A09357 Assistance with Respiratory Ventilation, Less than 24 Consecutive Hours, Continuous Positive Airway Pressure (ICD-10-PCS; 2020-12-20)
PROC: 30233K1 Transfusion of Nonautologous Frozen Plasma into Peripheral Vein, Percutaneous Approach (ICD-10-PCS; 2020-12-21)
PROC: 5A0935A Assistance with Respiratory Ventilation, Less than 24 Consecutive Hours, High Flow/Velocity Cannula (ICD-10-PCS; 2020-12-21)
PROC: 5A09357 Assistance with Respiratory Ventilation, Less than 24 Consecutive Hours, Continuous Positive Airway Pressure (ICD-10-PCS; 2020-12-21)
PROC: 0W9G3ZZ Drainage of Peritoneal Cavity, Percutaneous Approach (ICD-10-PCS; 2020-12-22)
PROC: 5A09457 Assistance with Respiratory Ventilation, 24-96 Consecutive Hours, Continuous Positive Airway Pressure (ICD-10-PCS; 2020-12-22)
PROC: 30233R1 Transfusion of Nonautologous Platelets into Peripheral Vein, Percutaneous Approach (ICD-10-PCS; 2020-12-23)
PROC: 5A0955A Assistance with Respiratory Ventilation, Greater than 96 Consecutive Hours, High Flow/Velocity Cannula (ICD-10-PCS; 2020-12-23)
PROC: 5A09357 Assistance with Respiratory Ventilation, Less than 24 Consecutive Hours, Continuous Positive Airway Pressure (ICD-10-PCS; 2020-12-29)
DX: A41.9 Sepsis, unspecified organism (principal); E43 Unspecified severe protein-calorie malnutrition; J96.01 Acute respiratory failure with hypoxia; G92.8 Other toxic encephalopathy; K65.2 Spontaneous bacterial peritonitis; R18.8 Other ascites; N17.9 Acute kidney failure, unspecified; I13.0 Hypertensive heart and chronic kidney disease with heart failure and stage 1 through stage 4 chronic kidney disease, or unspecified chronic kidney disease; Z68.41 Body mass index [BMI] 40.0-44.9, adult; E87.2 Acidosis; D68.9 Coagulation defect, unspecified; D69.3 Immune thrombocytopenic purpura; K76.6 Portal hypertension; E87.1 Hypo-osmolality and hyponatremia; M31.8 Other specified necrotizing vasculopathies; E87.3 Alkalosis; J84.9 Interstitial pulmonary disease, unspecified; B37.0 Candidal stomatitis; E72.20 Disorder of urea cycle metabolism, unspecified; E87.6 Hypokalemia; N18.9 Chronic kidney disease, unspecified; N28.1 Cyst of kidney, acquired; I50.9 Heart failure, unspecified; E87.5 Hyperkalemia; Z96.653 Presence of artificial knee joint, bilateral; D64.9 Anemia, unspecified; M19.90 Unspecified osteoarthritis, unspecified site; E83.51 Hypocalcemia; E83.42 Hypomagnesemia; E83.39 Other disorders of phosphorus metabolism; D86.0 Sarcoidosis of lung; R21 Rash and other nonspecific skin eruption; T38.0X5A Adverse effect of glucocorticoids and synthetic analogues, initial encounter; T50.2X5A Adverse effect of carbonic-anhydrase inhibitors, benzothiadiazides and other diuretics, initial encounter; Y92.238 Other place in hospital as the place of occurrence of the external cause; L53.9 Erythematous condition, unspecified; D69.59 Other secondary thrombocytopenia; R16.1 Splenomegaly, not elsewhere classified; E66.01 Morbid (severe) obesity due to excess calories; R59.0 Localized enlarged lymph nodes; K72.90 Hepatic failure, unspecified without coma; R65.20 Severe sepsis without septic shock; Z20.822 Contact with and (suspected) exposure to COVID-19; K74.60 Unspecified cirrhosis of liver; K52.9 Noninfective gastroenteritis and colitis, unspecified; K76.0 Fatty (change of) liver, not elsewhere classified; Z82.49 Family history of ischemic heart disease and other diseases of the circulatory system; Z90.49 Acquired absence of other specified parts of digestive tract; Z91.19 Patient's noncompliance with other medical treatment and regimen
CPT/HCPCS: 36415; 36600; 49083; 71045; 71250; 74176; 76700; 76705; 76937; 78580; 80048; 80053; 80061; 80076; 80202; 81003; 82040; 82085; 82140; 82164; 82248; 82306; 82330; 82375; 82595; 82784; 82805; 82955; 83520; 83605; 83615; 83735; 83880; 83970; 84100; 84132; 84145; 84439; 84443; 84484; 84550; 85025; 85041; 85651; 86022; 86140; 86147; 86160; 86200; 86225; 86235; 86256; 86334; 86431; 86592; 86644; 86645; 86705; 86709; 86780; 86803; 86850; 86900; 86927; 87340; 87426; 88108; 88312; 93005; 93306; 93970; 94640; 94660; 99291; A6261; C1725; C1892; C1893; J0692; J1200; J1940; J2185; J2405; J2543; J2920; J3370; J3430; J3475; J3480; J3490; J7030; J7040; J7050; J7060; J7070; J7512; J7517; J8610; P9017; P9047; U0003; U0005; A4315; P9036